=== PATIENT | male | born 1975 ===

== ENCOUNTER 2020-08-24 11:36 | Outpatient (REF) | payer OTHER, SELFPAY ==
[2020-08-24 12:38] LABS: MANUAL DIFF FLAG NO
[2020-08-24 12:43] LABS: Basophils Percent Auto 0.4 % (0-2); Eosinophils Absolute Auto 0.1 X10*3/uL (0.0-0.4); Eosinophils Percent Auto 1.6 % (0-4); Hematocrit 37.6 % (42-52); Hemoglobin 12.5 g/dl (14.0-18.0); Imm Gran Abs Auto 0.03 X10*3/uL (0.00-0.03); Imm Gran Pct Auto 0.6 % (0.0-0.4); Lymphocytes Percent Auto 19.9 % (20-40); Mean Corpuscular HGB Conc 33.2 g/dl (31.0-36.0); Mean Corpuscular Hemoglobin 33.2 pg (27.0-33.0); Mean Platelet Volume 10.7 fL (9.4-12.4); Monocytes Absolute Auto 0.5 X10*3/uL (0.1-1.2); Monocytes Percent Auto 9.9 % (2-11); Neutrophils Absolute Auto 3.4 X10*3/uL (2.0-8.3); Neutrophils Percent Auto 67.6 % (45-73); Platelet Count 320 X10*3/uL (160-400); Red Blood Count 3.76 X10*6/uL (4.60-5.80); Red Cell Distribution Width 15.9 % (11.0-16.0)
[2020-08-24 12:56] LABS: Glucose Urine UA NEG (NEG); Leukocyte Esterase Urine NEG (NEG); Nitrite Urine NEG (NEG); PH 6.5 (5.0-8.0); Specific Gravity - Urine 1.015 (1.005-1.025); Urine Blood NEG (NEG); Urine Ketones NEG (NEG); Urine Protein NEG (NEG-TRACE)
[2020-08-24 12:59] LABS: Appearance Urine CLEAR; Color Urine YELLOW
[2020-08-24 13:12] LABS: Alanine Aminotransferase 69 U/L (0-40); Albumin Level 3.8 g/dL (3.5-5.0); Alkaline Phosphatase 46 U/L (39-117); Anion Gap 14 (12-20); Aspartate Amino Transferase 67 U/L (5-37); Bilirubin Total 0.5 mg/dL (0.0-1.0); Blood Urea Nitrogen 10 mg/dL (9-16); Calcium 9.3 mg/dL (8.4-10.2); Carbon Dioxide 27 mmol/L (22-29); Chloride 100 mmol/L (96-108); Cholesterol 216 mg/dL; Estimated Glomerular Filt Rate > 60; Glucose Fasting 87 mg/dL (60-99); HDL Cholesterol 73 mg/dL; LDL Cholesterol Calculated 121 mg/dl; Potassium 4.5 mmol/l (3.3-5.1); Sodium 136 mmol/L (135-145); Total Protein 6.5 g/dL (6.5-8.0); Triglycerides 110 mg/dL
[2020-08-24 13:32] LABS: Prostate Specific Antigen 1.26 ng/mL (<0.05-4.0)
== END 2020-08-24 11:37 | disposition home or self-care (01) ==
LOC: HO.LAB 11:36
PROVIDERS: PCP Internal Medicine; Visit Provider Internal Medicine
DX: Z00.00 Encounter for general adult medical examination without abnormal findings (principal); E78.00 Pure hypercholesterolemia, unspecified; I10 Essential (primary) hypertension; G35 Multiple sclerosis; K58.0 Irritable bowel syndrome with diarrhea
CPT/HCPCS: 36415; 80053; 80061; 81003; 84153; 85025

== ENCOUNTER 2021-09-14 10:41 | Outpatient (REF) | payer OTHER, SELFPAY ==
[2021-09-14 10:45] LABS: MANUAL DIFF FLAG NO
[2021-09-14 10:58] LABS: Basophils Percent Auto 0.5 % (0-2); Imm Gran Abs Auto 0.02 X10*3/uL (0.00-0.03); Mean Platelet Volume 10.8 fL (9.4-12.4)
[2021-09-14 11:04] LABS: Appearance Urine HAZY; Color Urine YELLOW; Glucose Urine UA NEG (NEG); Leukocyte Esterase Urine NEG (NEG); Nitrite Urine NEG (NEG); Specific Gravity - Urine >= 1.030 (1.005-1.025); Urine Blood NEG (NEG); Urine Ketones 5 MG/DL (NEG); Urine Protein 1+ MG/DL (NEG-TRACE)
[2021-09-14 11:09] LABS: Eosinophils Absolute Auto 0.1 X10*3/uL (0.0-0.4); Eosinophils Percent Auto 1.2 % (0-4); Hematocrit 42.2 % (42.0-52.0); Imm Gran Pct Auto 0.4 % (0.0-0.4); Lymphocytes Absolute Auto 1.2 X10*3/uL (1.2-4.9); Lymphocytes Percent Auto 20.6 % (20-40); Mean Corpuscular HGB Conc 33.2 g/dl (31.0-36.0); Mean Corpuscular Volume 96.6 fL (80.0-98.0); Monocytes Absolute Auto 0.8 X10*3/uL (0.1-1.2); Monocytes Percent Auto 13.6 % (2-11); Neutrophils Absolute Auto 3.6 x10*3/uL (2.0-8.3); Neutrophils Percent Auto 63.7 % (45-73); Platelet Count 370 X10*3/uL (160-400); Red Blood Count 4.37 X10*6/uL (4.60-5.80); Red Cell Distribution Width 15.4 % (11.0-16.0); White Blood Count 5.7 X10*3/uL (4.8-10.8)
[2021-09-14 11:35] LABS: Alanine Aminotransferase 98 U/L (0-40); Albumin Level 3.9 g/dL (3.5-5.0); Alkaline Phosphatase 58 U/L (39-117); Anion Gap 19 (12-20); Aspartate Amino Transferase 62 U/L (5-37); Bilirubin Total 0.5 mg/dL (0.0-1.0); Blood Urea Nitrogen 10 mg/dL (9-16); Calcium 9.1 mg/dL (8.4-10.2); Carbon Dioxide 25 mmol/L (22-29); Chloride 100 mmol/L (96-108); Cholesterol 198 mg/dL; Estimated Glomerular Filt Rate > 60; Glucose Fasting 60 mg/dL (60-99); HDL Cholesterol 69 mg/dL; LDL Cholesterol Calculated 97 mg/dl; Potassium 4.3 mmol/L (3.3-5.1); Sodium 140 mmol/L (135-145); Total Protein 6.9 g/dL (6.5-8.0); Triglycerides 161 mg/dL
[2021-09-14 11:57] LABS: PSA,Total (Free>4and<10) 1.82 ng/mL (0.00-4.00)
[2021-09-14 12:08] LABS: WBC Urine 0 /HPF (0-4)
[2021-09-14 12:09] LABS: Amorphous Sediment Urine 1+ /LPF; RBC Urine 0 /HPF (0); Squamous Epithelial Cell Urine 1+ /LPF
== END 2021-09-14 10:42 | disposition home or self-care (01) ==
LOC: HO.LNP 10:41
PROVIDERS: PCP Internal Medicine; Visit Provider Internal Medicine
DX: Z00.00 Encounter for general adult medical examination without abnormal findings (principal); Z12.5 Encounter for screening for malignant neoplasm of prostate; R79.89 Other specified abnormal findings of blood chemistry; I10 Essential (primary) hypertension; G35 Multiple sclerosis; E78.00 Pure hypercholesterolemia, unspecified
CPT/HCPCS: 80053; 80061; 81001; 81003; 84153; 85025

== ENCOUNTER 2021-09-21 15:36 | Outpatient (REF) | payer OTHER, SELFPAY ==
[2021-09-21 16:28] LABS: Thyroid Stimulating Hormone 1.43 uIU/mL (0.32-4.0)
== END 2021-09-21 15:37 | disposition home or self-care (01) ==
LOC: HO.LNP 15:36
PROVIDERS: Visit Provider Internal Medicine
DX: L85.3 Xerosis cutis (principal)
CPT/HCPCS: 84443

== ENCOUNTER 2022-03-24 15:37 | Outpatient (REF) | payer OTHER, SELFPAY ==
[2022-03-24 16:01] LABS: Alanine Aminotransferase 29 U/L (0-40); Albumin Level 4.1 g/dL (3.5-5.0); Alkaline Phosphatase 56 U/L (39-117); Aspartate Amino Transferase 21 U/L (5-37); Bilirubin Direct 0.2 mg/dL (0.0-0.5); Bilirubin Total 0.5 mg/dL (0.0-1.0); Total Protein 7.2 g/dL (6.5-8.0)
== END 2022-03-24 15:38 | disposition home or self-care (01) ==
LOC: HO.LNP 15:37
PROVIDERS: Visit Provider Internal Medicine
DX: R79.89 Other specified abnormal findings of blood chemistry (principal)
CPT/HCPCS: 80076

== ENCOUNTER 2022-08-02 10:20 | Outpatient (REF) | payer OTHER, SELFPAY ==
[2022-08-02 11:05] LABS: COVID-19 Test Negative (Negative); IDNOW Serial# 16C4AD1C
== END 2022-08-02 10:21 | disposition home or self-care (01) ==
LOC: HO.LAB 10:20
PROVIDERS: Visit Provider Internal Medicine
DX: Z20.822 Contact with and (suspected) exposure to COVID-19 (principal)
CPT/HCPCS: 87635; C9803

== ENCOUNTER 2022-09-19 11:48 | Outpatient (REF) | payer OTHER, SELFPAY ==
[2022-09-19 11:52] LABS: MANUAL DIFF FLAG NO
[2022-09-19 12:18] LABS: Basophils Percent Auto 0.3 % (0-2); Eosinophils Absolute Auto 0.2 X10*3/uL (0.0-0.4); Eosinophils Percent Auto 2.6 % (0-4); Hematocrit 46.9 % (42.0-52.0); Hemoglobin 15.1 g/dl (14.0-18.0); Imm Gran Abs Auto 0.02 X10*3/uL (0.00-0.03); Imm Gran Pct Auto 0.3 % (0.0-0.4); Lymphocytes Absolute Auto 1.2 X10*3/uL (1.2-4.9); Lymphocytes Percent Auto 17.2 % (20-40); Mean Corpuscular HGB Conc 32.2 g/dl (31.0-36.0); Mean Corpuscular Hemoglobin 28.9 pg (27.0-33.0); Mean Corpuscular Volume 89.7 fL (80.0-98.0); Mean Platelet Volume 10.9 fL (9.4-12.4); Monocytes Absolute Auto 0.6 X10*3/uL (0.1-1.2); Monocytes Percent Auto 8.7 % (2-11); Neutrophils Absolute Auto 4.9 x10*3/uL (2.0-8.3); Neutrophils Percent Auto 70.9 % (45-73); Platelet Count 509 X10*3/uL (160-400); Red Blood Count 5.23 X10*6/uL (4.60-5.80); Red Cell Distribution Width 14.4 % (11.0-16.0); White Blood Count 6.9 X10*3/uL (4.8-10.8)
[2022-09-19 12:46] LABS: Appearance Urine Clear; Color Urine Yellow; Glucose Urine UA Negative (Negative); Leukocyte Esterase Urine Negative (Negative); Nitrite Urine Negative (Negative); Specific Gravity - Urine 1.025 (1.005-1.025); Urine Blood Negative (Negative); Urine Ketones Negative (Negative); Urine Protein Negative (Neg-Trace)
[2022-09-19 13:00] LABS: PSA,Total (Free>4and<10) 2.15 ng/mL (0.00-4.00)
[2022-09-19 13:18] LABS: Alanine Aminotransferase 47 U/L (0-40); Albumin Level 4.2 g/dL (3.5-5.0); Alkaline Phosphatase 64 U/L (39-117); Anion Gap 15 (12-20); Aspartate Amino Transferase 25 U/L (5-37); Bilirubin Total 0.5 mg/dL (0.0-1.0); Blood Urea Nitrogen 17 mg/dL (9-16); Calcium 9.7 mg/dL (8.4-10.2); Carbon Dioxide 23 mmol/L (22-29); Chloride 105 mmol/L (96-108); Cholesterol 266 mg/dL; Estimated Glomerular Filt Rate > 60; Glucose Fasting 88 mg/dL (60-99); HDL Cholesterol 42 mg/dL; LDL Cholesterol Calculated 200 mg/dl; Potassium 4.4 mmol/L (3.3-5.1); Sodium 139 mmol/L (135-145); Total Protein 6.8 g/dL (6.5-8.0); Triglycerides 121 mg/dL
[2022-09-19 13:31] LABS: RBC Urine 0-2 /HPF (0-2); Squamous Epithelial Cell Urine 0-2 /HPF (0-2); WBC Urine 0-5 /HPF (0-5)
[2022-09-19 13:32] LABS: Bacteria Urine None Seen (None Seen); Hyaline Casts Urine 0-2 /LPF (0-2)
== END 2022-09-19 11:49 | disposition home or self-care (01) ==
LOC: HO.LNP 11:48
PROVIDERS: Visit Provider Internal Medicine
DX: Z00.00 Encounter for general adult medical examination without abnormal findings (principal); I10 Essential (primary) hypertension; R79.89 Other specified abnormal findings of blood chemistry; E78.00 Pure hypercholesterolemia, unspecified; Z12.5 Encounter for screening for malignant neoplasm of prostate
CPT/HCPCS: 80053; 80061; 81001; 84153; 85025

== ENCOUNTER 2022-10-28 11:01 | Outpatient (REF) | payer OTHER, SELFPAY ==
[2022-10-28 11:06] LABS: MANUAL DIFF FLAG NO
[2022-10-28 11:11] LABS: Basophils Percent Auto 0.4 % (0-2); Eosinophils Absolute Auto 0.2 X10*3/uL (0.0-0.4); Hematocrit 43.3 % (42.0-52.0); Hemoglobin 13.9 g/dl (14.0-18.0); Imm Gran Abs Auto 0.03 X10*3/uL (0.00-0.03); Imm Gran Pct Auto 0.4 % (0.0-0.4); Lymphocytes Absolute Auto 1.5 X10*3/uL (1.2-4.9); Lymphocytes Percent Auto 18.3 % (20-40); Mean Corpuscular HGB Conc 32.1 g/dl (31.0-36.0); Mean Corpuscular Hemoglobin 28.4 pg (27.0-33.0); Mean Corpuscular Volume 88.4 fL (80.0-98.0); Mean Platelet Volume 10.8 fL (9.4-12.4); Monocytes Absolute Auto 0.6 X10*3/uL (0.1-1.2); Monocytes Percent Auto 7.6 % (2-11); Neutrophils Absolute Auto 5.6 x10*3/uL (2.0-8.3); Neutrophils Percent Auto 70.3 % (45-73); Platelet Count 523 X10*3/uL (160-400); Red Cell Distribution Width 14.2 % (11.0-16.0); White Blood Count 7.9 X10*3/uL (4.8-10.8)
== END 2022-10-28 11:02 | disposition home or self-care (01) ==
LOC: HO.LNP 11:01
PROVIDERS: Visit Provider Internal Medicine
DX: D75.839 Thrombocytosis, unspecified (principal)
CPT/HCPCS: 85025

== ENCOUNTER 2022-12-30 10:52 | Outpatient (REF) | payer OTHER, SELFPAY ==
[2022-12-30 10:56] LABS: MANUAL DIFF FLAG NO
[2022-12-30 11:46] LABS: Basophils Percent Auto 0.3 % (0-2); Eosinophils Absolute Auto 0.1 X10*3/uL (0.0-0.4); Eosinophils Percent Auto 1.9 % (0-4); Hematocrit 46.3 % (42.0-52.0); Hemoglobin 14.8 g/dl (14.0-18.0); Imm Gran Abs Auto 0.02 X10*3/uL (0.00-0.03); Imm Gran Pct Auto 0.3 % (0.0-0.4); Lymphocytes Absolute Auto 1.3 X10*3/uL (1.2-4.9); Mean Corpuscular Hemoglobin 28.8 pg (27.0-33.0); Mean Corpuscular Volume 90.1 fL (80.0-98.0); Mean Platelet Volume 11.1 fL (9.4-12.4); Monocytes Absolute Auto 0.6 X10*3/uL (0.1-1.2); Monocytes Percent Auto 8.4 % (2-11); Neutrophils Absolute Auto 5.4 x10*3/uL (2.0-8.3); Neutrophils Percent Auto 72.1 % (45-73); Platelet Count 497 X10*3/uL (160-400); Red Blood Count 5.14 X10*6/uL (4.60-5.80); Red Cell Distribution Width 13.8 % (11.0-16.0); White Blood Count 7.5 X10*3/uL (4.8-10.8)
[2022-12-30 12:05] LABS: Alanine Aminotransferase 49 U/L (0-40); Albumin Level 4.1 g/dL (3.5-5.0); Alkaline Phosphatase 69 U/L (39-117); Aspartate Amino Transferase 33 U/L (5-37); Bilirubin Direct 0.2 mg/dL (0.0-0.5); Bilirubin Total 0.6 mg/dL (0.0-1.0); Cholesterol 118 mg/dL; HDL Cholesterol 37 mg/dL; LDL Cholesterol Calculated 67 mg/dl; Total Protein 6.5 g/dL (6.5-8.0); Triglycerides 70 mg/dL
[2022-12-30 13:43] LABS: Reflex LDLD? No
== END 2022-12-30 10:53 | disposition home or self-care (01) ==
LOC: HO.LNP 10:52
PROVIDERS: Visit Provider Internal Medicine
DX: D75.839 Thrombocytosis, unspecified (principal); E78.00 Pure hypercholesterolemia, unspecified
CPT/HCPCS: 80061; 80076; 85025

== ENCOUNTER 2023-09-26 10:37 | Outpatient (REF) | payer SELFPAY ==
[2023-09-26 10:43] LABS: MANUAL DIFF FLAG NO
[2023-09-26 11:09] LABS: Appearance Urine Clear; Color Urine Yellow; Glucose Urine UA Negative (Negative); Leukocyte Esterase Urine Small (1+) (Negative); Nitrite Urine Negative (Negative); Specific Gravity - Urine 1.025 (1.005-1.025); UMIC TRIGGER UACC YES; Urine Blood Negative (Negative); Urine Ketones Negative (Negative); Urine Protein Negative (Neg-Trace)
[2023-09-26 11:13] LABS: Basophils Percent Auto 0.4 % (0-2); Eosinophils Absolute Auto 0.2 X10*3/uL (0.0-0.4); Eosinophils Percent Auto 2.5 % (0-4); Hematocrit 47.5 % (42.0-52.0); Hemoglobin 15.1 g/dl (14.0-18.0); Imm Gran Abs Auto 0.02 X10*3/uL (0.00-0.03); Imm Gran Pct Auto 0.2 % (0.0-0.4); Lymphocytes Absolute Auto 2.3 X10*3/uL (1.2-4.9); Lymphocytes Percent Auto 25.4 % (20-40); Mean Corpuscular HGB Conc 31.8 g/dl (31.0-36.0); Mean Corpuscular Hemoglobin 28.7 pg (27.0-33.0); Mean Corpuscular Volume 90.1 fL (80.0-98.0); Mean Platelet Volume 11.6 fL (9.4-12.4); Monocytes Absolute Auto 0.7 X10*3/uL (0.1-1.2); Monocytes Percent Auto 7.8 % (2-11); Neutrophils Absolute Auto 5.7 x10*3/uL (2.0-8.3); Neutrophils Percent Auto 63.7 % (45-73); Platelet Count 482 X10*3/uL (160-400); Red Blood Count 5.27 X10*6/uL (4.60-5.80); Red Cell Distribution Width 14.9 % (11.0-16.0)
[2023-09-26 11:15] LABS: Bacteria Urine None Seen (None Seen); Hyaline Casts Urine 0-2 /LPF (0-2); RBC Urine 0-2 /HPF (0-2); Squamous Epithelial Cell Urine 0-2 /HPF (0-2); UACC Culture Trigger YES
[2023-09-26 11:24] LABS: Alanine Aminotransferase 34 U/L (0-40); Albumin Level 4.4 g/dL (3.5-5.0); Alkaline Phosphatase 58 U/L (39-117); Anion Gap 10 (12-20); Aspartate Amino Transferase 23 U/L (5-37); Bilirubin Direct 0.3 mg/dL (0.0-0.5); Bilirubin Total 0.8 mg/dL (0.0-1.0); Blood Urea Nitrogen 15 mg/dL (9-16); Calcium 10.3 mg/dL (8.4-10.2); Carbon Dioxide 29 mmol/L (22-29); Chloride 105 mmol/L (96-108); Cholesterol 180 mg/dL (<200); Estimated Glomerular Filt Rate > 60; Glucose Random 83 mg/dL (60-115); HDL Cholesterol 45 mg/dL (>40); LDL Cholesterol Calculated 122 mg/dL (<100); Sodium 140 mmol/L (135-145); Total Protein 7.5 g/dL (6.5-8.0); Triglycerides 68 mg/dL (<150)
[2023-09-26 11:38] LABS: PSA,Total (Free>4and<10) 1.26 ng/mL (0.00-4.00)
== END 2023-09-26 10:38 | disposition home or self-care (01) ==
LOC: HO.LNP 10:37
PROVIDERS: Visit Provider Internal Medicine
DX: Z00.00 Encounter for general adult medical examination without abnormal findings (principal); Z12.5 Encounter for screening for malignant neoplasm of prostate; R79.89 Other specified abnormal findings of blood chemistry; E78.00 Pure hypercholesterolemia, unspecified; I10 Essential (primary) hypertension; R82.90 Unspecified abnormal findings in urine
CPT/HCPCS: 80053; 80061; 81001; 82248; 84153; 85025; 87086

== ENCOUNTER 2024-03-28 13:10 | Outpatient (REF) | payer OTHER, SELFPAY ==
[2024-03-28 14:05] LABS: Alanine Aminotransferase 32 U/L (0-40); Albumin Level 4.3 g/dL (3.5-5.0); Alkaline Phosphatase 53 U/L (39-117); Aspartate Amino Transferase 23 U/L (5-37); Bilirubin Direct 0.3 mg/dL (0.0-0.5); Bilirubin Total 0.7 mg/dL (0.0-1.0); Cholesterol 135 mg/dL (<200); HDL Cholesterol 46 mg/dL (>40); LDL Cholesterol Calculated 76 mg/dL (<100); Total Protein 7.2 g/dL (6.5-8.0); Triglycerides 69 mg/dL (<150)
[2024-03-28 14:18] LABS: Reflex LDLD? No
== END 2024-03-28 13:11 | disposition home or self-care (01) ==
LOC: HO.LNP 13:10
PROVIDERS: Visit Provider Internal Medicine
DX: E78.00 Pure hypercholesterolemia, unspecified (principal)
CPT/HCPCS: 80061; 80076

== ENCOUNTER 2024-09-26 07:17 | Outpatient (REF) | payer OTHER, BC, SELFPAY ==
[2024-09-26 07:31] LABS: MANUAL DIFF FLAG NO
[2024-09-26 08:09] LABS: Appearance Urine Clear; Color Urine Yellow; Glucose Urine UA Negative (Negative); Leukocyte Esterase Urine Negative (Negative); Nitrite Urine Negative (Negative); PH 6.5 (5.0-9.0); Urine Blood Negative (Negative); Urine Ketones Negative (Negative); Urine Protein Negative (Neg-Trace)
[2024-09-26 08:16] LABS: Bacteria Urine None Seen (None Seen); Hyaline Casts Urine 0-2 /LPF (0-2); RBC Urine 0-2 /HPF (0-2); Squamous Epithelial Cell Urine 0-2 /HPF (0-2); WBC Urine 0-5 /HPF (0-5)
[2024-09-26 08:19] LABS: Basophils Percent Auto 0.4 % (0-2); Eosinophils Absolute Auto 0.2 X10*3/uL (0.0-0.4); Eosinophils Percent Auto 2.2 % (0-4); Hematocrit 45.9 % (42.0-52.0); Hemoglobin 14.9 g/dl (14.0-18.0); Imm Gran Abs Auto 0.03 X10*3/uL (0.00-0.03); Imm Gran Pct Auto 0.4 % (0.0-0.4); Lymphocytes Absolute Auto 1.8 X10*3/uL (1.2-4.9); Lymphocytes Percent Auto 25.7 % (20-40); Mean Corpuscular HGB Conc 32.5 g/dl (31.0-36.0); Mean Corpuscular Hemoglobin 28.3 pg (27.0-33.0); Mean Corpuscular Volume 87.3 fL (80.0-98.0); Mean Platelet Volume 10.7 fL (9.4-12.4); Monocytes Absolute Auto 0.5 X10*3/uL (0.1-1.2); Monocytes Percent Auto 7.2 % (2-11); Neutrophils Absolute Auto 4.5 x10*3/uL (2.0-8.3); Neutrophils Percent Auto 64.1 % (45-73); Platelet Count 495 X10*3/uL (160-400); Red Blood Count 5.26 X10*6/uL (4.60-5.80); Red Cell Distribution Width 13.9 % (11.0-16.0)
[2024-09-26 08:48] LABS: Alanine Aminotransferase 35 U/L (0-40); Albumin Level 4.3 g/dL (3.5-5.0); Alkaline Phosphatase 54 U/L (39-117); Anion Gap 10 (12-20); Aspartate Amino Transferase 33 U/L (5-37); Bilirubin Direct 0.2 mg/dL (0.0-0.5); Bilirubin Total 0.6 mg/dL (0.0-1.0); Blood Urea Nitrogen 12 mg/dL (9-16); Carbon Dioxide 27 mmol/L (22-29); Chloride 105 mmol/L (96-108); Cholesterol 148 mg/dL (<200); Estimated Glomerular Filt Rate > 60; Glucose Fasting 80 mg/dL (60-99); HDL Cholesterol 45 mg/dL (>40); LDL Cholesterol Calculated 87 mg/dL (<100); Potassium 4.3 mmol/L (3.3-5.1); Sodium 138 mmol/L (135-145); Total Protein 7.1 g/dL (6.5-8.0); Triglycerides 82 mg/dL (<150)
[2024-09-26 09:04] LABS: PSA,Total (Free>4and<10) 1.39 ng/mL (0.00-4.00)
== END 2024-09-26 07:18 | disposition home or self-care (01) ==
LOC: HO.LAB 07:17
PROVIDERS: PCP Internal Medicine; Visit Provider Internal Medicine
DX: Z00.00 Encounter for general adult medical examination without abnormal findings (principal); R79.89 Other specified abnormal findings of blood chemistry; E78.00 Pure hypercholesterolemia, unspecified; I10 Essential (primary) hypertension; Z12.5 Encounter for screening for malignant neoplasm of prostate
CPT/HCPCS: 36415; 80053; 80061; 80076; 81001; 84153; 85025

== ENCOUNTER 2025-04-04 11:24 | Outpatient (REF) | payer OTHER, BC, SELFPAY ==
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
[2025-04-04 12:25] LABS: Alanine Aminotransferase 45 U/L (0-40); Albumin Level 4.6 g/dL (3.5-5.0); Alkaline Phosphatase 46 U/L (39-117); Aspartate Amino Transferase 71 U/L (5-37); Bilirubin Direct 0.5 mg/dL (0.0-0.5); Bilirubin Total 1.6 mg/dL (0.0-1.0); Cholesterol 208 mg/dL (<200); HDL Cholesterol 106 mg/dL (>40); LDL Cholesterol Calculated 78 mg/dL (<100); Total Protein 7.2 g/dL (6.5-8.0); Triglycerides 124 mg/dL (<150)
[2025-04-04 13:43] LABS: Reflex LDLD? No
== END 2025-04-04 11:25 | disposition home or self-care (01) ==
LOC: HO.LNP 11:24
PROVIDERS: Visit Provider Internal Medicine
DX: E78.00 Pure hypercholesterolemia, unspecified (principal)
CPT/HCPCS: 80061; 80076

== ENCOUNTER 2025-10-06 10:38 | Outpatient (REF) | payer OTHER, BC, SELFPAY ==
[2025-10-06 10:46] LABS: MANUAL DIFF FLAG NO
[2025-10-06 11:11] LABS: Hematocrit 39.7 % (42.0-52.0); Hemoglobin 13.2 g/dl (14.0-18.0); Imm Gran Abs Auto 0.04 X10*3/uL (0.00-0.03); Imm Gran Pct Auto 0.6 % (0.0-0.4); Lymphocytes Absolute Auto 1.5 X10*3/uL (1.2-4.9); Mean Corpuscular HGB Conc 33.2 g/dl (31.0-36.0); Mean Corpuscular Hemoglobin 31.4 pg (27.0-33.0); Mean Corpuscular Volume 94.5 fL (80.0-98.0); NRBC Abs Auto 0.000 X10*3/uL (0.0-0.012); NRBC Pct Auto 0.0 /100WBC (0.0-0.2); Platelet Count 418 X10*3/uL (160-400); Red Blood Count 4.20 X10*6/uL (4.60-5.80); White Blood Count 7.0 X10*3/uL (4.8-10.8)
[2025-10-06 11:20] LABS: Appearance Urine Clear; Glucose Urine UA Negative (Negative); PH 6.0 (5.0-9.0); Specific Gravity - Urine 1.015 (1.005-1.025)
[2025-10-06 11:21] LABS: Alanine Aminotransferase 44 U/L (0-40); Albumin Level 4.6 g/dL (3.5-5.0); Alkaline Phosphatase 49 U/L (39-117); Anion Gap 15 (12-20); Aspartate Amino Transferase 68 U/L (5-37); Blood Urea Nitrogen 13 mg/dL (9-16); Calcium 9.8 mg/dL (8.4-10.2); Carbon Dioxide 28 mmol/L (22-29); Chloride 98 mmol/L (96-108); Cholesterol 189 mg/dL (<200); Estimated Glomerular Filt Rate > 60; HDL Cholesterol 106 mg/dL (>40); Potassium 4.4 mmol/L (3.3-5.1); Sodium 137 mmol/L (135-145); Total Protein 7.0 g/dL (6.5-8.0); Triglycerides 64 mg/dL (<150)
[2025-10-06 12:01] LABS: PSA,Total (Free>4and<10) 1.33 ng/mL (0.00-4.00)
--- OUTSIDE RECORDS SUMMARY | 2025-10-06 13:32 | XMS_ITS | Clinical Summary ---
Author Organization [facility] Address [address] [place] [address] Care Team Providers Care Cylinder Press Operator Apprentice Name Role Phone Dalton Diaz MD Unavailable [phone] Orquidea Potts BATCH STILL OPERATOR Unavailable [phone] Neymar Vance [facility] Unavailable [phone] Chiquis Burch BATCH STILL OPERATOR Unavailable [phone] Compa Hdez MD Primary Care Provider [phone] Allergies No known active allergies Medications * This document contains information received from the source organization and may not represent a complete record from that organization. irbesartan-hydr ochlorothiazide (AVALIDE) 300-12.5 MG per tablet Take 1 tablet by mouth daily. 4 8 Active methocarbamol (ROBAXIN) 500 MG tablet Take 2 tablets (1,000 mg total) by mouth 4 times daily (every 6 hours) as needed for muscle spasms. 20 tablet 8 Active disulfiram (Antabuse) 250 MG tabletIndicatio ns:Moderate alcohol use disorder (HCC) Take 1 tablet (250 mg total) by mouth daily. 30 tablet 2 0 Active penicillin v potassium (VEETID) 500 MG tabletIndicatio ns:Dental infection Take 1 tablet (500 mg total) by mouth 3 (three) times a day. 21 tablet 2 Active lidocaine (XYLOCAINE) 2 % solutionIndicat ions:Dental infection Take 5 mL by mouth 4 (four) times a day as needed for mild pain. 100 mL 2 Active oxyCODONE (ROXICODONE) 5 MG immediate release tabletIndicatio ns:Synovitis of ankle Take 1 tablet (5 mg total) by mouth every 4 (four) hours as needed for moderate pain or severe pain. Max Daily Amount: 30 mg 20 tablet 3 Active diclofenac enteric coated (VOLTAREN) 50 MG EC tabletIndicatio ns:Peroneal tendinitis of left lower extremity Take 1 tablet (50 mg total) by mouth 3 (three) times a day with meals. Administer with food avoid GI upset. 90 tablet 2 4 Active lidocaine (LIDODERM) 5 % patchIndication s:Peroneal tendinitis of left lower extremity Place 1 patch on the skin daily. Apply patch and leave on for 12 hours then remove. Patch may remain on skin for 12 hours per day. 30 patch 5 Active Active Problems Problem Noted Date Diagnosed Date Moderate alcohol use disorder 01/05/2020 Major depressive disorder, recurrent episode, mo derate 01/05/2020 Multiple sclerosis 01/05/2020 Encounters Date Type Department Care Team Description 07/23/2025 Scanned Document [facility] [address] [id number] Felipe Suarez MD 07/23/2025 Scanned Document [facility] [address] [address] Shara Dumont Singh 07/22/2025 9:30 AM EDT Office Visit [facility] [address] [address] [phone] Felipe Suarez MD Instability of left ankle joint (Primary Dx) from Last 3 Months Social History Tobacco Use Types Packs/Day Years Used Date Smoking Tobacco: Never Assessed Sex and Gender Information Value Date Recorded Sex Assigned at Not on file Legal Sex Male 6:58 PM EST Gender Identity Not on file Sexual Orientation Not on file Last Filed Vital Signs Vital Sign Reading Time Taken Comments Blood Pressure 145/85 11/02/2022 6:29 PM EST Pulse 73 11/02/2022 6:29 PM EST Temperature 37.1 C (98.8 F) 11/02/2022 6:29 PM EST Respiratory Rate 16 10/18/2018 11:38 PM EST Oxygen Saturation 98% 11/02/2022 6:29 PM EST Inhaled Oxygen Concentration - - Weight - - Height - - Body Mass Index - - Plan of Treatment Health Maintenance Due Date Last Done Comments Hepatitis C Virus Screening 1977 DTaP/Tdap/Td Vaccines (1 - Tdap) 1996 Hepatitis B Vaccines (1 of 3 - 19+ 3-dose series) 1996 Colonoscopy 2022 Influenza Vaccine 06/06/2025 07/09/2022 COVID-19 Vaccine (3 - 2024-2 6 season) 2025 03/21/2023, 08/04/2022 HIV Screening Completed 11/23/2017 Pneumococcal Vaccine: Pediatric (0-5 Years) and At-Risk Patients (6 to 49 Years) Aged Out No longer eligible b ased on patient's age to complete this topic Goals Goal Patient Goal Type Associated Problems Recent Progress Patient-Stated? Author Learn refusal skills for use when tempted into addictive behavior. Care Plan ADD-Substance Use Disorders No Orquidea Potts LCSW I want to stay clean for my health and well being. Care Plan ADD-Substance Use Disorders No Orquidea Potts LCSW MARS GOAL 8 - Feel good about myself Care Plan ADD-Substance Use Disorders No Orquidea Potts LCSW Note: Client will report at least a 1 point increase on the MARS-12 outcome measure item (#8) I feel good about myself even when others look down on my illness on the next administration of the measure. Client will participate in therapy to learn more about substance use issues. Frequency monthly Duration 60 minutes Modality IOP group [phone] List and implement positive alternatives to substance abuse as a means of coping with stressful life change events. Care Plan ADD-Substance Use Disorders No Orquidea Potts LCSW [phone] Cooperate with a physician evaluation and take all medications as prescribed. Care Plan ADD-Substance Use Disorders No Orquidea Potts LCSW Procedures Procedure Name Priority Date/Time Associated Diagnosis Comments MRI ANKLE W/O CONTRAST-LEFT Routine 08/19/2025 12:44 PM EDT Instability of left ankle joint from Last 3 Months Results * MRI Ankle w/o contrast-Left (08/19/2025 12:44 PM EDT) Anatomical Region Laterality Modality Ankle Left Magnetic Resonan ce 08/19/2025 11:1 5 AM EDT 08/19/2025 11:15 AM EDT Impressions 08/22/2025 1:22 PM EDT 1. 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 No acute osseous injury. 2. Minimal posterior tibialis tenosynovitis, slightly increased when compared to the prior examination. No transverse tendon tear or tendon retraction. 3. Mild edema within the sinus tarsi, decreased when compared to the prior examination. 4. Mild medial and lateral subcutaneous edema, new when compared to the prior examination. Electronically signed by: Carmelo Britt MD 08/22/2025 01:22 PM EDT Thank you for referring your patient to us, Carmelo Britt MD [phone] (Electronically Signed - 08/22/2025 13:22) Copy: PATIENT , Narrative 08/22/2025 1:22 PM EDT EXAMINATION: MR ANKLE WITHOUT CONTRAST, LEFT CLINICAL INFORMATION: Left ankle/foot pain and swelling. Injury in April 2022. Evaluate for ankle instability. COMPARISON: Left ankle MRI dated 09/17/2024. TECHNIQUE: Multiplanar MR images of the left ankle were obtained on a high-field scanner without intravenous contrast. 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 Degenerative cystic change redemonstrated within the talar body, unchanged. No acute osseous injury. No fracture or dislocation. The ankle mortise is maintained. No talar osteochondral lesion. No concerning lytic or blastic osseous lesion. Tiny plantar calcaneal spur. ACHILLES TENDON: Intact. OTHER TENDONS: Trace fluid within the posterior tibialis tendon sheath, slightly increased when compared to the prior examination and consistent with minimal tenosynovitis. No transverse tendon tear or tendon retraction. LIGAMENTS: No acute ligament injury. JOINT FLUID AND SOFT TISSUES: No significant joint effusion. No soft tissue mass or fluid collection. Mild medial and lateral subcutaneous edema, new when compared to the prior examination. PLANTAR FASCIA: Intact. SINUS TARSI AND TARSAL TUNNEL: Mild edema redemonstrated within the sinus tarsi, decreased when compared to the prior examination. Patent tarsal tunnel. Procedure Note Carmelo Britt MD - 08/22/2025 EXAMINATION: MR ANKLE WITHOUT CONTRAST, LEFT CLINICAL INFORMATION: Left ankle/foot pain and swelling. Injury in April 2022. Evaluate for ankleinstability. COMPARISON: Left ankle MRI dated 09/17/2024. TECHNIQUE: Multiplanar MR images of the left ankle were obtained on a high-fieldscanner without intravenous contrast. FINDINGS: BONE AND ARTICULAR CARTILAGE: Mild osteoarthritis at the tibiotalar,subtalar, and talonavicular joints, unchanged when compared to the priorexamination. Degenerative cystic change redemonstrated within the talarbody, unchanged. No acute osseous injury. No fracture or dislocation. The ankle mortise is maintained. Notalar osteochondral lesion. No concerning lytic or blastic osseous lesion.Tiny plantar calcaneal spur. ACHILLES TENDON: Intact. OTHER TENDONS: Trace fluid within the posterior tibialis tendon sheath,slightly increased when compared to the prior examination and consistentwith minimal tenosynovitis. No transverse tendon tear or tendonretraction. LIGAMENTS: No acute ligament injury. JOINT FLUID AND SOFT TISSUES: No significant joint effusion. No softtissue mass or fluid collection. Mild medial and lateral subcutaneousedema, new when compared to the prior examination. PLANTAR FASCIA: Intact. SINUS TARSI AND TARSAL TUNNEL: Mild edema redemonstrated within the sinustarsi, decreased when compared to the prior examination. Patent tarsaltunnel. IMPRESSION: 1. Mild osteoarthritis at the tibiotalar, subtalar, and talonavicularjoints, unchanged. No acute osseous injury. 2. Minimal posterior tibialis tenosynovitis, slightly increased whencompared to the prior examination. No transverse tendon tear or tendonretraction. 3. Mild edema within the sinus tarsi, decreased when compared to the priorexamination. 4. Mild medial and lateral subcutaneous edema, new when compared to theprior examination. Electronically signed by: Carmelo Britt MD 08/22/2025 01:22 PM EDT RPWorkstation: [id number] Thank you for referring your patient to us, Carmelo Britt MD [id number] (Electronically Signed - 08/22/2025 13:22) Copy: PATIENT , us Felipe Suarez MD IMG MRI ORDERABLES Final Resu lt from Last 3 Months Additional Health Concerns Active Problems Noted Date Diagnosed Date ADD-Substance Use Disorders 01/06/2020 Note: Ambulatory Services to address Jonathan's Alcohol Use Disorder, Moderate. Jonathan presents in preparation stage of change as evidenced by his recent discontinuation of daily alcohol use and his willingness to utilize supports / engage in treatment to assist in his recovery. [facility] Care Teams Cylinder Press Operator Apprentice Relationship Specialty Start Date End Date Compa Hdez MD [address] [place] [address] [place] [address] PCP - General Internal Medicine 10/04/23 Dalton Diaz MD [address] [place] [address] Primary BH Attending Psychiatry, Addiction 01/02/20 Orquidea Potts LCSW [address] [place] [address] Pest Control Specialist Clinical Social Work 01/05/20 Neymar Vance LPC [address] [place] [address] Primary Clinician Clinical Social Work 01/05/20 Chiquis Burch, BATCH STILL OPERATOR [address] [place] [id number] Pest Control Specialist Clinical Social Work 01/07/20
--- OUTSIDE RECORDS SUMMARY | 2025-10-06 13:32 | XMS_ITS | Encounter Summary ---
Author Organization [facility] Address [address] [place] [address] Care Team Providers Care Plastic Sewer Name Role Phone Dalton Diaz MD Unavailable [phone] Orquidea Potts AIR HOLE DRILLER Unavailable [phone] Neymar Vance LPC Unavailable [phone] Chiquis Burch AIR HOLE DRILLER Unavailable [phone] Compa Hdez MD Primary Care Provider [phone] Encounter Details Date Type Department Care Team (Late st Contact Info) Description 07/23/2025 Scanned Document [facility] [address] [place] [address] Shara Dumont [address] [place] [address] Social History Tobacco Use Types Packs/Day Years Used Date Smoking Tobacco: Never Assessed Sex and Gender Information Value Date Recorded Sex Assigned at Not on file Legal Sex Male 6:58 PM EST Gender Identity Not on file Sexual Orientation Not on file documented as of this encounter Plan of Treatment Not on file documented as of this encounter Goals Goal Patient Goal Type Associated Problems [...] ADD-Substance Use Disorders No Orquidea Potts LCSW documented as of this encounter Visit Diagnoses Not on filedocumented in this encounter Additional Health Concerns Active Problems Noted Date Diagnosed Date ADD-Substance Use Disorders 01/06/2020 Note: Ambulatory Services to address Jonathan's Alcohol Use Disorder, Moderate. Jonathan presents in preparation stage of change as evidenced by his recent discontinuation of daily alcohol use and his willingness to utilize supports / engage in treatment to assist in his recovery. documented as of this encounter Care Teams Plastic Sewer Relationship Specialty Start Date End Date Compa Hdez MD [address] [place] [address] [place] [address] PCP - General Internal Medicine 10/04/23 Dalton Diaz MD [address] [place] [address] Primary Attending Psychiatry, Addiction 01/02/20 Orquidea Potts LCSW [address] [place] [address] Sheepskin Pickler Clinical Social Work 01/05/20 Neymar Vance LPC [address] [place] [address] Primary Clinician Clinical Social Work 01/05/20 Chiquis Burch, AIR HOLE DRILLER [address] [facility] [place] [address] Sheepskin Pickler Clinical Social Work 01/07/20 documented as of this encounter
--- OUTSIDE RECORDS SUMMARY | 2025-10-06 13:32 | XMS_ITS | Encounter Summary ---
Author Organization [facility] Address [address] [place] [address] Care Team Providers Care Patient Accounting Representative Name Role Phone Dalton Diaz MD Unavailable [phone] Orquidea Potts TOOTH CLERK Unavailable [phone] Neymar Vance HISTORY TEACHER Unavailable [phone] Chiquis Burch TOOTH CLERK Unavailable [phone] Copma Hdez MD Primary Care Provider [phone] Encounter Details Date Type Department Care Team (Late st Contact Info) Description 07/23/2025 Scanned Document [facility] [address] [place] [phone] Felipe Suarez MD [address] [place] [address] Social History Tobacco Use Types Packs/Day Years [...] documented as of this encounter Care Teams Patient Accounting Representative Relationship Specialty Start Date End Date Compa Hdez MD [address] [place] [address] [place] [address] PCP - General Internal Medicine 10/04/23 Dalton Diaz MD [address] [place] [address] Primary Attending Psychiatry, Addiction 01/02/20 Orquidea Potts LCSW [address] [place] [address] Clinical Data Manager Clinical Social Work 01/05/20 Neymar Vance LPC [address] [place], [place] Primary Clinician Clinical Social Work 01/05/20 Chiquis Burch, TOOTH CLERK [address] [place] [address] Clinical Data Manager Clinical Social Work 01/07/20 documented as of this encounter
--- OUTSIDE RECORDS SUMMARY | 2025-10-06 13:32 | XMS_ITS | Encounter Summary ---
Author Organization [facility] Address [address] [place] [address] Care Team Providers Care Human Resources Services Specialist Name Role Phone Unknown Primary Care Provider [phone] Dalton Diaz MD Unavailable [phone] Orquidea Potts PATIENT FLOW COORDINATOR Unavailable [phone] Neymar Vance SENIOR SOURCING MANAGER Unavailable [phone] Chiquis Burch PATIENT FLOW COORDINATOR Unavailable [phone] Jolene Underwood APRN Unavailable Unavailab Compa Lam MD Primary Care Provider [phone] Encounter Details Date Type Department Care Team (Late st Contact Info) Description 09/18/2023 Scanned Document [facility] [address] [phone] Tristen Payton MD [address] [place] [address] Social History Tobacco Use Types Packs/Day Years [...] Care Plan ADD-Substance Use Disorders No Orquidea Potts, PATIENT FLOW COORDINATOR I want to stay clean for my [...] documented as of this encounter Care Teams Human Resources Services Specialist Relationship Specialty Start Date End Date Unknown Unknow Provider Address PCP - General 10/18/18 10/03/23 Compa Hdez MD [address] [place] [address] [place] [address] PCP - General Internal Medicine 10/04/23 Dalton Diaz MD [facility] [place] [address] Primary BH Attending Psychiatry, Addiction 01/02/20 Orquidea Potts LCSW [address] [place] [address] Twisting Frame Operator Clinical Social Work 01/05/20 Neymar Vance LPC [address] [place] [address] Primary Clinician Clinical Social Work 01/05/20 Chiquis Burch PATIENT FLOW COORDINATOR [address] [place] [address] Twisting Frame Operator Clinical Social Work 01/07/20 Jolene Underwood, PREFLIGHT INSPECTOR [address] [place] [address] Nurse Practitioner Psychiatry, Addiction 01/15/20 01/15/25 documented as of this encounter
--- OUTSIDE RECORDS SUMMARY | 2025-10-06 13:32 | XMS_ITS | Clinical Summary ---
Author Organization [facility] Address [address] [place] [address] Care Team Providers Care Marina Sales And Service Supervisor Name Role Phone Pcp, No MD Primary Care Provider Unavailabl e Allergies No known active allergies Medications omeprazole (PriLOSEC) 40 mg capsule Take 40 mg by mouth in the morning. Active Social History Tobacco Use Types Packs/Day Years Used Date Smoking Tobacco: Never Assessed Sex and Gender Information Value Date Recorded Sex Assigned at Not on file Legal Sex Male 5:30 AM EST Gender Identity Not on file Sexual Orientation Not on file Last Filed Vital Signs Vital Sign Reading Time Taken Comments Blood Pressure 125/83 04/26/2022 2:27 AM EDT Pulse 61 04/26/2022 2:27 AM EDT Temperature 35.9 C (96.6 F) 04/26/2022 2:27 AM EDT Respiratory Rate 18 04/26/2022 2:27 AM EDT Oxygen Saturation 97% 04/26/2022 2:27 AM EDT Inhaled Oxygen Concentration - - Weight 128 kg (283 lb) 04/25/2022 10:36 PM EDT Height 190.5 cm (6' 3 ) 04/25/2022 10:36 PM EDT Body Mass Index 35.37 04/25/2022 10:36 PM EDT Plan of Treatment Health Maintenance Due Date Last Done Comments CT Colonography 1977 Colonoscopy 1977 FIT-DNA (Cologuard) 1977 FIT 1977 Flex Sigmoidoscopy - 5y 1977 Hepatitis B Vaccines (1 of 3 - 19+ 3-dose series) 1996 Colorectal Cancer Screening 09/26/2023 FOBT 09/26/2023 09/26/2022, 09/06, 2019, Additional history exists COVID-19 Vaccine ( season) 2025 09/06/2021, 02/03/2021, 01/06/2021 Influenza Vaccine (#1) 2025 , 07/29/2020, 2019, Additional history exists Zoster Vaccines (1 of 2) 2027 DTaP,Tdap,and Td Vaccines (2 - Td or Tdap) 08/20/2028 08/20/2018, 08/20/2018 HIV Screening Completed 11/23/2017 Pneumococcal Vaccine: At-Risk and Pediatric Patients (0 to 49 Years) Aged Out 07/17/2020 No longer eligi ble based on patient's age to complete this topic HPV Vaccines Aged Out No longer eligi ble based on patient's age to complete this topic Hepatitis A Vaccines Aged Out No long er eligible based on patient's age to complete this topic MMR Vaccines Aged Out No longer eligi ble based on patient's age to complete this topic Meningococcal Vaccine Aged Out No francis jose eligible based on patient's age to complete this topic Procedures Procedure Name Priority Date/Time Associated Diagnosis Comments HIV COMBO ANTIGEN/ANTIBODY Routine 11/23/2017 10:55 AM EST from Last 3 Months or Most Recently Relevant to Health Maintenance Results * HIV combo antigen/antibody (11/23/2017 10:55 AM EST) HIV-1 / HIV-2 Screen NEGATIVE Negative [facility] Comment: This test is a 4th generation HIV Antigen-Antibody Combination assay, using a chemiluminescent microparticle immunoassay, for the simultaneous qualitative detection of human immuno- deficiency virus (HIV) p24 antigen and antibodies to HIV type 1 (HIV-1) and/or HIV type 2 (HIV-2) in human serum or plasma. The [employer] HIV Ag/Ab Combo assay is intended to be used as an aid in the diagnosis of HIV-1 and/or HIV-2 infection, including acute or primary HIV-1 infection. Initially-positive tests are repeated in duplicate. Repeat-positive tests will be confirmed for HIV by a HIV-1/HIV-2 rapid supplemental/ differentiation antibody assay. This testing algorithm is in line with the current CDC recommendations. 11/23/2017 10:5 5 AM EST 11/23/2017 1:09 PM EST us Baltazar Whitfield MD LAB BLOOD ORDERABLES NO STAT Final Result [facility] [address] [place] [address], [place] [id number] from Last 3 Months or Most Recently Relevant to Health Maintenance Insurance [facility] [employer] Care Teams Marina Sales And Service Supervisor Relationship Specialty Start Date End Date Kenna Hagan MD [address] [place] [address] PCP - General Internal Medicine 04/26/22
--- OUTSIDE RECORDS SUMMARY | 2025-10-06 13:32 | XMS_ITS | Clinical Summary ---
Author Organization [facility] Address [address] [place] [address] Care Team Providers Care Sanding Machine Operator Name Role Phone Compa Hdez MD Primary Care Provider Allergies No known active allergies Medications Medication Sig Dispensed Refills Start Date End Date Status atorvastatin (LIPITOR) tablet 40 mg 1 tablet 0 09/26/2022 Active gabapentin (NEURONTIN) 300 MG capsule 2capsule 0 Active ocrelizumab (Ocrevus) 300 MG/10ML SOLN as directed 0 Active omeprazole (PriLOSEC) 40 MG capsule 1 capsule 0 Active lidocaine (LIDODERM) 5 % 0 10/22/2022 Active Cholecalciferol (Vitamin D3) 1.25 MG (85599 UT) TABS TAKE 1 CAPSULE BY MOUTH EVERY DAY 0 07/21/2022 Active botulinum toxin type A (BOTOX) 100 units SOLR injection once. 0 Active baclofen (LIORESAL) 10 MG tablet TAKE 1 TAB TWICE A DAY WHEN NECESSARY FOR SPASM. MAY CAUSE DROWSINESS. 0 07/04/2023 Active celecoxib (CeleBREX) 200 MG capsule TAKE 1 CAPSULE BY MOUTH TWICE A DAY NEEDED FOR PAIN WITH FOOD 0 04/22/2024 Active diclofenac (VOLTAREN) 50 MG EC tablet TAKE 1 TAB TWICE A DAY BY MOUTH WHEN NECESSARY FOR PAIN WITH FOOD. 0 04/02/2024 Active amphetamine-dextroa mphetamine (ADDERALL XR, 20MG,) 20 MG 24 hr capsule Take 1 capsule (20 mg total) by mouth daily. 30 capsule 0 07/17/2024 Active amphetamine-dextroa mphetamine (ADDERALL) 20 MG tablet Take 1 tablet (20 mg total) by mouth daily. 30 tablet 0 08/02/2024 Active Active Problems Problem Noted Date Diagnosed Date Class 1 obesity due to exces s calories without serious comorbidity with body mass index (BMI) of 33.0 to 33.9 in adult 05/13/2024 Obstructive sleep apnea 05/13/2024 Seasonal allergic rhinitis due to pollen 024 Multiple sclerosis 12/29/2022 Migraine 04/25/2022 05/13/2024 Major depressive disorder, recurrent episode, mo derate 01/05/2020 05/13/2024 Moderate alcohol use disorder 01/05/2020 Family History Medical History Relation Name Comments Heart failure Father Hypertension Father Sleep apnea Father Stroke Father Dementia Mother Relation Name Status Comments Father Mother Alive Social History Tobacco Use Types Packs/Day Years Used Date Smoking Tobacco: Never Passive Smoke Exposure: Past Smokeless Tobacco: Never Tobacco Cessation:Counseling Given: Yes Alcohol Use Standard Drinks/Week Comments Not Currently 4 (1 standard drink = 0.6 oz pur e alcohol) Sex and Gender Information Value Date Recorded Sex Assigned at Male 10/17/2022 12:39 PM EST Gender Identity Not on file Sexual Orientation Not on file Job Start Date Occupation Industry Not on file Not on file Not on file Last Filed Vital Signs Vital Sign Reading Time Taken Comments Blood Pressure 103/66 07/15/2024 12:50 PM EDT Pulse 65 07/15/2024 12:50 PM EDT Temperature 36.7 C (98 F) 01/24/2024 10:43 AM EDT Respiratory Rate 18 07/15/2024 12:50 PM EDT Oxygen Saturation 97% 07/15/2024 12:50 PM EDT Inhaled Oxygen Concentration - - Weight 122.5 kg (270 lb) 07/03/2024 4:26 PM EDT Height 190.5 cm (6' 3 ) 07/03/2024 4:26 PM EDT Body Mass Index 33.75 07/03/2024 4:26 PM EDT Plan of Treatment Health Maintenance Due Date Last Done Comments Hepatitis B Vaccines (1 of 3 - 3-dose series) 1977 COVID-19 Vaccine (#1) 02/25/1978 Depression Screening 1989 BMI Counseling 1995 Preventative Health Evaluation 1995 DTap / Tdap / Td (1 - Tdap) 1996 Colon Cancer Screening (Colonoscopy) 2022 Influenza Vaccine (#1) 2025 07/09/2022 Hepatitis C Screening Completed 11/23/2017 Pneumococcal Vaccine Aged Out 07/09/2022 No long er eligible based on patient's age to complete this topic RSV Ped < 20 months Aged Out No longe r eligible based on patient's age to complete this topic Care Teams Sanding Machine Operator Relationship Specialty Start Date End Date Compa Hdez MD [address] [place] [id number] PCP - General Internal Medicine 10/27/22
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
== END 2025-10-06 10:39 | disposition home or self-care (01) ==
LOC: HO.LNP 10:38
PROVIDERS: Visit Provider Internal Medicine
DX: Z00.00 Encounter for general adult medical examination without abnormal findings (principal); E78.00 Pure hypercholesterolemia, unspecified; I10 Essential (primary) hypertension; R79.89 Other specified abnormal findings of blood chemistry; Z12.5 Encounter for screening for malignant neoplasm of prostate
CPT/HCPCS: 80053; 80061; 80076; 81001; 82248; 84153; 85025